=== PATIENT | female | born 1980 | race Caucasian/White ===

== ENCOUNTER 2017-06-10 05:40 | Day surgery (SDC) | payer OTHER ==
[2017-06-08 15:09] VITALS: BMI 37.0
[~2017-06-10 05:40] MED LIST: BUPIVACAINE HCL/PF 0.5% (5MG/ML) 10 ML VIAL IJ ONE
[2017-06-10 10:05] VITALS: TEMP 98.1
--- NOTE | 2017-06-10 13:39 | HP ---
History & Physical Update - History History: No Change - Physical Physical: No Change - Assessment Assessment: No Change - Plan Plan: No Change
--- NOTE | 2017-06-10 13:41 | HP ---
[facility] - Chief Complaint History Source: Patient - Past Medical History Allergies/Adverse Reactions: Allergies Allergy/AdvReac Type Severity Reaction Status Date / Time No Known Allergies Allergy Verified 06/10/17 10:18 Hepatobiliary: Yes: Other (Abdominal pain.) ...LMP: 06/08/17 - Current Medications Current Medications: Home Medications Medication Instructions Recorded Albuterol Sulfate Inhaler - 1 - 2 inh PO Q4H 02/03/15 [Ventolin Hfa Inhaler -] Ascorbate Calcium [Vitamin C] 500 mg PO DAILY 06/08/17 [facility]ellite Physical Exam - Physical Examination Vital Signs: Vital Signs Period Temp Pulse Resp BP Sys/Vela Pulse Ox Last 24 Hr 98.1 F 100 18 108/65 98 Satellite Impression/Plan - Impression/Plan Impression: Cholelithiaisi, cholecystitis. Operative Procedure: Laparoscopic cholecystectomy, possible open. Date to be Performed: 06/10/17
[2017-06-10] MEDS ORDERED: BUPIVACAINE HCL/PF 0.5% (5MG/ML) 10 ML VIAL ONE (13:44)
[2017-06-10] MEDS ORDERED: LIDOCAINE HCL/PF 2% SDV 5ML VIAL ONE (13:46)
[2017-06-10] MEDS ORDERED: PROPOFOL 20 ML ONE ×2 (13:46)
[2017-06-10] MEDS ORDERED: fentaNYL CITRATE 250 MCG/5 ML VIAL ONE (13:46)
[2017-06-10] MEDS ORDERED: ROCURONIUM BROMIDE 50 MG/5 ML VIAL ONE (13:46)
[2017-06-10] MEDS ORDERED: ceFAZolin SODIUM 1 GM VIAL ONE (13:46)
[2017-06-10] MEDS ORDERED: MIDAZOLAM HCL 2 MG/2 ML SINGLE DOSE VIAL ONE (13:47)
[2017-06-10] MEDS ORDERED: ceFAZolin SODIUM 1 GM VIAL IVPB ONE (14:02)
[2017-06-10] MEDS ORDERED: BUPIVACAINE HCL/PF 0.5% (5MG/ML) 10 ML VIAL IJ ONE ×2 (14:21)
[2017-06-10] MEDS ORDERED: IBUPROFEN 800 MG/8 ML IJ IVPB PRN (14:36)
[2017-06-10] MEDS ORDERED: oxyCODONE HCL 5 MG TABLET PO PRN (14:36)
[2017-06-10] MEDS ORDERED: ONDANSETRON 4 MG/2 ML VIAL IVPUSH PRN (14:36)
[2017-06-10] MEDS ORDERED: ACETAMINOPHEN 1000 MG/100 ML VIAL (NON FORMULARY) IVPB PRN (14:38)
[2017-06-10] MEDS ORDERED: LACTATED RINGERS SOLUTION 1,000 ML IV SCH (14:45)
[2017-06-10] MEDS ORDERED: NEOSTIGMINE METHYLSULFATE 0.5 MG/ML - 10 ML MDV ONE (15:07)
[2017-06-10] MEDS ORDERED: GLYCOPYRROLATE 0.2 MG/1 ML VIAL ONE (15:07)
--- NOTE | 2017-06-10 15:42 | OP ---
Operative Note - Note: Operative Date: 06/10/17 Pre-Operative Diagnosis: Cholelithiasis, cholecystitis. Operation: Laparoscopic cholecystectomy, lysis of adhesions. Findings: Gallstones with multiple adhesions, of omentum. Post-Operative Diagnosis: Same as Pre-op (Calculus of gallbladder with cholecystitis and adhesions.) Surgeon: Ran Antonio Vice President Marketing & Development: Jemima Iverson Anesthesiologist/POLICE INVESTIGATOR: Sophie Quarles Anesthesia: General Specimens Removed: Gallbladder with stones. Estimated Blood Loss (mls): 10 Operative Report Dictated: Yes
[2017-06-10] MEDS ORDERED: IBUPROFEN 800 MG/8 ML IJ IVPB ONE (15:56)
[2017-06-10] MEDS ORDERED: ACETAMINOPHEN INJECTION 100 ML IVPB ONE (16:03)
--- NOTE | 2017-06-10 17:08 | SURG ---
Surgery Roll Off Driver Note Roll Off Driver: Jemima Iverson PA-C Date of Service: 06/10/17 Diagnosis: Cholelithiasis, cholecystitis. Procedure: Laparoscopic cholecystectomy, lysis of adhesions. I was present for the entirety of the operative procedure. For further detail, please refer to operative report. Visit type - Case Type Case Type: Scheduled Admission - Emergency Emergency Visit: No - New patient This patient is new to me today: Yes Date on this admission: 06/10/17
[2017-06-10 18:28] VITALS: BP 121/77; PULSE 98
--- NOTE | 2017-06-11 15:33 | OP ---
DATE OF OPERATION: 06/10/2017 PREOPERATIVE DIAGNOSIS: Cholelithiasis, chronic cholecystitis. POSTOPERATIVE DIAGNOSIS: Cholelithiasis, chronic cholecystitis with extensive omentum and peritoneal adhesions. SURGEON: Miguel Antonio MD ANESTHESIA: General anesthesia. ANESTHESIOLOGIST: Sophie Quarles MD FAMILY PRACTICE MEDICAL DOCTOR: NANCY Bustamante OPERATIVE DESCRIPTION: This 36-year-old woman with constant right upper quadrant pain was found to have cholelithiasis. She was brought in for laparoscopic cholecystectomy. Risks, benefits and complications have been discussed with the patient. Consent obtained. Patient was given general anesthesia. The abdomen painted and draped. An incision was made in the infraumbilical portion of the umbilicus, which was deepened into the skin, subcutaneous tissue and the linea alba. The peritoneum was incised and a 10-12 mm laparoscopic trocar of the Huey type was introduced into the abdominal cavity. The abdomen was inflated with carbon dioxide at 6 L per minute with maximum intraabdominal pressure 15 mmHg, and 10 mm camera was introduced into the abdominal cavity. Under direct vision, two 5 mm trocars were inserted in the right upper quadrant of the abdomen. These were noted entering the abdominal cavity under direct vision with the camera. Another 5 mm trocar was inserted in the midline in the subxiphoid area. This was also noted entering the abdominal cavity and to the right of the falciform ligament attention was turned to the camera. There were multiple adhesions of the liver to the anterior abdominal wall, as well as adhesions in the right side of the abdomen. These were lysed with the Harmonic scalpel. The gallbladder was then visualized. There was omental adhesion around the gallbladder, which was carefully lysed. The gallbladder was then grasped at the fundus with the 5 mm grasper through the lateral 5 mm port site. This was retracted cephalad and laterally, exposing the infundibulum of the gallbladder. The gallbladder was full of bile. The infundibulum of the gallbladder was then grasped with another grasper through the medial 5 mm port site. Again adhesions of the omentum and around the cystic duct infundibulum were carefully lysed. The duodenum and the stomach were also pulled towards the gallbladder. This was carefully . Once this was done, cystic duct and cystic artery was identified circumferentially and . These were then divided between clips. The peritoneal reflection on either side of the gallbladder was then incised. The gallbladder was dissected off the gallbladder bed all the way to the fundus of the gallbladder. The cholecystectomy was thus accomplished. There were multiple stones in the gallbladder. The gallbladder and stones were then placed in the EndoCatch and retrieved out of the abdominal cavity. The gallbladder fossa was then thoroughly irrigated with normal saline. All fluid return was clear. There was no bleeding, no bile leak. The specimen was sent to Pathology. The instruments were then withdrawn under direct vision. The linea alba in the midline was approximated interrupted and [id number] 2-0 Vicryl sutures. The skin was approximated with buried interrupted 4-0 Monocryl sutures. Sponge count and instrument count was correct. Estimated blood loss was less than 10 mL. Patient tolerated the procedure well, was extubated and sent to the recovery room in satisfactory and stable condition. Astrid DIANE/[id number] CC: Amanda Sanchez MD
--- NOTE | 2017-06-14 11:49 | PATH ---
Surgical Pathology Report Patient Name: ALEKSANDAR PATRICIO [facility]. Rec. #: [id number] /Age/Gender: 1980 (Age: 36) / F Account: [id number] Location: U SURGICAL Taken: 06/10/2017 Received: 06/13/2017 Reported: 06/14/2017 Physicians: Miguel Antonio M.D. Specimen(s) Received GALLBLADDER Clinical History Cholelithiasis Final Diagnosis GALLBLADDER, CHOLECYSTECTOMY: CHRONIC CHOLECYSTITIS AND CHOLELITHIASIS. Electronically Signed Maximo Syed M.D. Gross Description Received in formalin, labeled "gallbladder," is a 6.5 x 2.3 x 1.8 cm. gallbladder with a 0.2 cm. in length portion of cystic duct attached. The outer surface is mendoza-henriquez with focal defects and varies from smooth to shaggy. The lumen contains abundant yellow, irregular choleliths averaging 0.7 cm in greatest dimension. There is no bile present within the lumen. The mucosa is mendoza-green and focally eroded. The wall of the gallbladder measures 0.1 cm. in thickness. Vendor Manager sections are submitted in one cassette. 06/13/2017 [facility]06/13/2017
== END 2017-06-10 18:35 | disposition home or self-care (01) ==
LOC: JASU-SURG 05:40
PROVIDERS: ATTEND Specialist
PROC: 0FT44ZZ Resection of Gallbladder, Percutaneous Endoscopic Approach (ICD-10-PCS; principal; 2017-06-10 12:45)
DX: K80.10 Calculus of gallbladder with chronic cholecystitis without obstruction (principal); K82.8 Other specified diseases of gallbladder
CPT/HCPCS: 88304-TC; 94760

== ENCOUNTER 2019-12-17 20:05 | Emergency (ER) | payer OTHER ==
[2019-12-17 20:11] VITALS: TEMP 98.1; BMI 38.6
[2019-12-17] MEDS ORDERED: SODIUM CHLORIDE 1,000 ML IV STA (20:16)
[2019-12-17] MEDS ORDERED: ONDANSETRON 4 MG/2 ML VIAL IVPB ONE (20:17)
[2019-12-17] MEDS ORDERED: ACETAMINOPHEN 1000 MG/100 ML VIAL (NON FORMULARY) IVPB ONE (20:55)
[2019-12-17 20:57] LABS: BASO % 0.4 % (0-2.0); EOS % 0.1 % (0-4.5); HEMOGLOBIN 15.4 GM/dL (10.7-15.3); LYMPH % 16.9 % (8-40); MCHC 32.9 g/dl (32.0-36.0); MEAN CELL VOLUME 91.4 fl (80-96); MEAN PLT VOLUME 8.5 fl (7.5-11.1); MONO % 5.8 % (3.8-10.2); NEUT % 76.8 % (42.8-82.8); PLATELET COUNT 319 K/MM3 (134-434); RBC 5.14 M/mm3 (3.60-5.2); RDW 13.6 % (11.6-15.6); WHITE BLOOD COUNT 11.9 K/mm3 (4.0-10.0)
[2019-12-17] MEDS ORDERED: ACETAMINOPHEN INJECTION 100 ML IVPB ONE (21:06)
[2019-12-17 21:07] LABS: INR 1.14 (0.83-1.09); PROTHROMBIN TIME (PATIENT) 13.5 SEC (9.7-13.0)
[2019-12-17 21:31] LABS: ALBUMIN 4.3 g/dl (3.4-5.0); ALK PHOS 109 U/L (45-117); ANION GAP 14 MMOL/L (8-16); BILIRUBIN,TOTAL 0.6 mg/dL (0.2-1); BLOOD UREA NITROGEN 19.1 mg/dL (7-18); CALCIUM 9.7 mg/dL (8.5-10.1); CHLORIDE 106 mmol/L (98-107); CO2 18 mmol/L (21-32); CREATININE 0.8 mg/dL (0.55-1.3); GLUCOSE,RANDOM 102 mg/dL (74-106); MAGNESIUM 2.1 mg/dL (1.8-2.4); SGOT/AST 21 U/L (15-37); SGPT/ALT 44 U/L (13-61); SODIUM 137 mmol/L (136-145); TOT PROT 8.4 g/dl (6.4-8.2)
[2019-12-17 23:11] LABS: EPI CELLS >36 /uL (0-25.1); HYALINE CASTS 4 /uL (0-3.1); PH,URINE 5.5 (5.0-8.0); URINE APPEARANCE CLOUDY; URINE BACTERIA 68 /uL (0-1359); URINE BILIRUBIN NEGATIVE (NEGATIVE); URINE COLOR YELLOW; URINE GLUCOSE (UA) NEGATIVE (NEGATIVE); URINE KETONE NEGATIVE (NEGATIVE); URINE LEUK ESTERASE NEGATIVE (NEGATIVE); URINE NITRITE NEGATIVE (NEGATIVE); URINE PROTEIN TRACE (NEGATIVE); URINE RBC 26 /uL (0-23.9); URINE UROBILINOGEN 0.2 mg/dL (0.2-1.0); URINE WBC 16 /uL (0-25.8)
[2019-12-17 23:23] VITALS: BP 108/76; PULSE 73
== END 2019-12-17 23:27 | disposition home or self-care (01) ==
LOC: JER 20:05
PROC: 3E033NZ Introduction of Analgesics, Hypnotics, Sedatives into Peripheral Vein, Percutaneous Approach (ICD-10-PCS; principal; 2019-12-17)
PROC: 3E033GC Introduction of Other Therapeutic Substance into Peripheral Vein, Percutaneous Approach (ICD-10-PCS; 2019-12-17)
PROC: 3E0337Z Introduction of Electrolytic and Water Balance Substance into Peripheral Vein, Percutaneous Approach (ICD-10-PCS; 2019-12-17)
DX: R55 Syncope and collapse (principal); K52.9 Noninfective gastroenteritis and colitis, unspecified
CPT/HCPCS: 36415; 70450-TC; 71045-TC-FY; 72125-TC; 80053; 81003; 82550; 83735; 84484; 84703; 85025; 85610; 85730; 93005; 93010; 99285-25; J0131